=== PATIENT | male | born 1940 | race Caucasian/White ===

== ENCOUNTER 2021-09-11 05:54 | Day surgery (SDC) | payer MEDICARE, OTHER ==
[2021-09-11] VITALS (12 sets, daily range): BP systolic 126–153; BP diastolic 60–70
[~2021-09-11] VITALS: Ht 180.3 cm; Wt 90.9 kg
[~2021-09-11 05:54] MED LIST: ALBU8HFA IH; ALLO300T8 PO; ASPI-611 PO; CAPT25TA3 PO; COLE1TAB2 PO; FENO160T PO; FLO0.4C PO; GLIM2TAB6 PO; HYDR25TA4 PO; METO-384 PO; OMEG-220 PO; PIOG30TA72 PO; POTA-197 PO
[2021-09-11] MEDS ORDERED: LIDOcaine/PRILOcaine 5gm cream TP ONE (06:15)
[2021-09-11] MEDS ORDERED: acetylcysteine 200 MG/ml 4ml vial PO SCH (06:16)
[2021-09-11] MEDS ORDERED: diphenhydrAMINE 25mg capsule PO PRN (06:20)
[2021-09-11] MEDS ORDERED: LORazepam 0.5 MG tablet PO PRN (06:20)
[2021-09-11] MEDS ORDERED: HYDR-3964 PO (06:43)
[2021-09-11] MEDS ORDERED: NITR0.4T48 SL (06:43)
[2021-09-11] MEDS ORDERED: PIOG45TA65 PO (06:43)
[2021-09-11 06:51] LABS: BASOPHILS % (AUTO) 0.4 % (0-1); EOSINOPHILS # (AUTO) 0.1 X10'3 (0-0.9); EOSINOPHILS % (AUTO) 1.4 % (0-6); HEMOGLOBIN 13.5 g/dl (14.0-17.9); LYMPHOCYTES # (AUTO) 1.7 X10'3 (1.1-4.8); LYMPHOCYTES % (AUTO) 28.6 % (21-51); MEAN CORPUSCULAR HEMOGLOBIN 30.9 PG (27.0-31.0); MEAN CORPUSCULAR HGB CONC 32.9 g/dL (33.0-36.5); MEAN CORPUSCULAR VOLUME 93.8 FL (78-98); MEAN PLATELET VOLUME 8.8 FL (7.4-10.4); MONOCYTES # (AUTO) 0.6 X10'3 (0-0.9); MONOCYTES % (AUTO) 10.5 % (2-12); NEUTROPHILS # (AUTO) 3.4 X10'3 (1.8-7.7); NEUTROPHILS % (AUTO) 59.1 % (42-75); PLATELET COUNT 164 X10'3 (140-440); RED BLOOD COUNT 4.37 X10'6 (4.70-6.10); RED CELL DISTRIBUTION WIDTH 15.7 % (11.5-14.5); WHITE BLOOD COUNT 5.8 X10'3 (4.5-11.0)
[2021-09-11] MEDS: normal saline 1,000 ML IV SCH ×2 (06:59→09:35)
[2021-09-11 07:04] LABS: ALBUMIN 3.3 G/DL (3.4-5.0); ANION GAP 11 (8-16); APTT 25 SECONDS (22-32); BLOOD UREA NITROGEN 26 MG/DL (7-18); BUN/CREATININE RATIO 15.9 (5.4-32.0); CALCIUM 9.3 MG/DL (8.5-10.1); CHLORIDE 101 MMOL/L (99-107); CREATININE 1.64 MG/DL (0.60-1.10); GLUCOSE 202 MG/DL (70-104); SODIUM 138 MMOL/L (135-145); TOTAL CARBON DIOXIDE 25.6 MMOL/L (24-32); eGFR 41 ML/MIN
[2021-09-11] MEDS ORDERED: nitroGLYCERIN-Tridil 50MG/D5W 250 ML IV ONE (07:16)
[2021-09-11] MEDS ORDERED: midazolam 1 mg/ML 2ml injection ONE (07:16)
[2021-09-11] MEDS ORDERED: LIDOcaine 1% (10mg/ml)w/preservative inj. 20ml MDV ONE (07:16)
[2021-09-11] MEDS ORDERED: heparin 1,000unit/ml 10ml vial 10 ML ONE (07:16)
[2021-09-11] MEDS ORDERED: iohexol 350 MG/ML 50ML vial IV ONE (07:16)
[2021-09-11] MEDS ORDERED: verapamil 2.5 mg/ml inj IV ONE (07:16)
[2021-09-11] MEDS ORDERED: iohexol 350MG/ML 100ml bottle IV ONE ×2 (07:16→08:29)
[2021-09-11] MEDS ORDERED: fentaNYL/PF 50MCG/1 ML 2ML syringe ONE (07:16)
--- NOTE | 2021-09-11 07:38 | NUR ---
Per pharmacy not able to send bicarb drip per Dr Mazariegos's orders. Will inform label remover/.
--- NOTE | 2021-09-11 09:33 | NUR ---
Verified with Dr Mazariegos would like him to take Crestor new Rx in addition to his cholesterol medication. Rx sent to [facility]
== END 2021-09-11 16:05 | disposition home or self-care (01) ==
LOC: SSTAY O 05:54
PROVIDERS: ATTEND Internal Medicine Cardiovascular Disease
DX: R94.39 Abnormal result of other cardiovascular function study (principal); I25.810 Atherosclerosis of coronary artery bypass graft(s) without angina pectoris; I25.82 Chronic total occlusion of coronary artery; I10 Essential (primary) hypertension; E78.5 Hyperlipidemia, unspecified; E11.9 Type 2 diabetes mellitus without complications; M10.9 Gout, unspecified; N40.0 Benign prostatic hyperplasia without lower urinary tract symptoms; Z87.891 Personal history of nicotine dependence; Z79.84 Long term (current) use of oral hypoglycemic drugs; Z79.82 Long term (current) use of aspirin; Z79.899 Other long term (current) drug therapy; Z79.01 Long term (current) use of anticoagulants
CPT/HCPCS: 36415; 80048; 85025; 85610; 85730; 93005; 93459; 93567; 99152; 99153; C1760; C1769; C1894; J1644; J2250; J3010; J3490; J7030; Q0163; Q9967; A4620; A5120; A6258